=== PATIENT | female | born 1990 | race American Indian/Alaskan Native ===

== ENCOUNTER 2017-04-20 00:58 | Emergency (ER) | payer MEDICAID ==
[2017-04-20 01:15] VITALS: RESP 18; O2SAT 100
--- NOTE | 2017-04-20 01:32 | ED PDOC ---
HPI: CCC, URI, Sore Throat <Dona Mcfarlane - Last Filed: 04/20/17 01:30> <Tae Eaton - Last Filed: 04/20/17 02:31> Time Seen by Provider: 04/20/17 01:19 Chief Complaint (Nursing): Chest Pain Additional Complaint(s): 26yo , homeless F with no PMHx c/o cough. productive cough, yellow sputum, a/w postussive chest pain. Denies f/c, n/v, SOB, hemoptysis, abd pain, diarrhea. (Dona Mcfarlane) Supervising Attending Note - Attestation: I have personally seen and examined this patient.: Yes I have fully participated in the care of the patient.: Yes I have reviewed all pertinent clinical information, including history, physical exam and plan: Yes <Tae Eaton - Last Filed: 04/20/17 02:31> Past Medical History Reviewed: Historical Data, Nursing Documentation, Vital Signs - Medical History PMH: No Chronic Diseases - Surgical History Surgical History: No Surg Hx - Family History Family History: States: Unknown Family Hx - Social History Current smoker - smoking cessation education provided: No Alcohol: None Drugs: Denies <DenysDona - Last Filed: 04/20/17 01:30> <Tae Eaton - Last Filed: 04/20/17 02:31> Vital Signs: Last Vital Signs Temp 98.2 F 04/20/17 01:11 Pulse 86 04/20/17 01:11 Resp 18 04/20/17 01:11 BP 117/68 04/20/17 01:11 Pulse Ox 100 04/20/17 01:35 - Allergies Allergies/Adverse Reactions: Allergies Allergy/AdvReac Type Severity Reaction Status Date / Time No Known Allergies Allergy Verified 04/20/17 01:28 Review of Systems ROS Statement: Except As Marked, All Systems Reviewed And Found Negative Cardiovascular: Positive for: Chest Pain Respiratory: Positive for: Cough, Sputum <Dona Mcfarlane - Last Filed: 04/20/17 01:30> Physical Exam - Reviewed Nursing Documentation Reviewed: Yes Vital Signs Reviewed: Yes - Physical Exam Appears: Positive for: Well, Non-toxic Head Exam: Positive for: ATRAUMATIC, NORMAL INSPECTION Skin: Positive for: Warm, Dry Eye Exam: Positive for: Normal appearance ENT: Negative for: Pharyngeal Erythema, Tonsillar Exudate Neck: Positive for: Normal, Supple Cardiovascular/Chest: Positive for: Regular Rate, Rhythm. Negative for: Murmur Respiratory: Positive for: Normal Breath Sounds. Negative for: Crackles, Rales , Rhonchi, Wheezing Gastrointestinal/Abdominal: Positive for: Normal Exam, Soft Back: Positive for: Normal Inspection Lymphatic: Positive for: Deferred. Negative for: Adenopathy Neurologic/Psych: Positive for: Alert, Oriented <,Ting - Last Filed: 04/20/17 01:30> - ECG O2 Sat by Pulse Oximetry: 100 <Ting - Last Filed: 04/20/17 01:30> Medical Decision Making <Ting - Last Filed: 04/20/17 01:30> <Tae Eaton - Last Filed: 04/20/17 02:31> Medical Decision Makin DDx uri, post tussive chest pain, unlikely IN EKG no acute change, no ST elevation tylenol 650 mg PO x1 d/c, FU PMD, take PNV, tylenol for pain/fever (,Ting) Disposition - Disposition Disposition: Routine/Home Disposition Time: 01:35 <Ortizg - Last Filed: 04/20/17 01:30> <Tae Eaton - Last Filed: 04/20/17 02:31> - Clinical Impression Clinical Impression: Viral URI with cough - Disposition Condition: STABLE Forms: [facility] (Indonesian)
[2017-04-20] MEDS ORDERED: guaiFENesin 100 mg/5 ml Syrup UD PO STA (01:50)
[2017-04-20 02:46] VITALS: BP 115/79; PULSE 84; TEMP 97.6
== END 2017-04-20 02:50 | disposition home or self-care (01) ==
LOC: H.ER 00:58
DX: J06.9 Acute upper respiratory infection, unspecified (principal)

== ENCOUNTER 2017-04-20 16:18 | Emergency (ER) | payer MEDICAID ==
[2017-04-20 16:35] VITALS: BP 109/60; PULSE 75; RESP 16; TEMP 98.6; O2SAT 100
--- NOTE | 2017-04-20 18:06 | ED PDOC ---
HPI: Female Pain Time Seen by Provider: 04/20/17 16:38 Chief Complaint (Nursing): Female Genitourinary Chief Complaint (Provider): Watery eyes, nasal congestion History Per: Patient History/Exam Limitations: no limitations Onset/Duration Of Symptoms: Days Current Symptoms Are (Timing): Still Present Additional Complaint(s): Watery eyes and nasal congestion. PT denies any other complaints. When asked about vaginal bleeding pt states a little. No previous US. Past Medical History Reviewed: Historical Data, Nursing Documentation, Vital Signs Vital Signs: Last Vital Signs Temp 98.6 F 04/20/17 16:31 Pulse 75 04/20/17 16:31 Resp 16 04/20/17 16:31 BP 109/60 04/20/17 16:31 Pulse Ox 100 04/20/17 16:31 - Medical History PMH: No Chronic Diseases - Surgical History Surgical History: Appendectomy - Family History Family History: States: Unknown Family Hx - Living Arrangements Living Arrangements: With Family - Social History Current smoker - smoking cessation education provided: No Alcohol: None Drugs: Denies - Home Medications Home Medications: Ambulatory Orders Medication Instructions Recorded Acetaminophen [Pain Reliever] 500 mg PO Q4 #30 tablet 04/20/17 Cetirizine HCl [Zyrtec Allergy] 10 mg PO DAILY #30 sgl 04/20/17 Guaifenesin [Expectorant] 200 mg PO BID #20 tablet 04/20/17 Multivit/Folic Acid/I 1 tab PO DAILY #30 tab 04/20/17 [ Plus] - Allergies Allergies/Adverse Reactions: Allergies Allergy/AdvReac Type Severity Reaction Status Date / Time No Known Allergies Allergy Verified 04/20/17 01:28 Review of Systems ROS Statement: Except As Marked, All Systems Reviewed And Found Negative Eyes: Positive for: Other (Watery eyes ) ENT: Positive for: Nose Congestion Genitourinary Female: Positive for: Vaginal Bleeding. Negative for: Dysuria, Frequency Physical Exam - Reviewed Nursing Documentation Reviewed: Yes Vital Signs Reviewed: Yes - Physical Exam Appears: Positive for: Well, Non-toxic, No Acute Distress Head Exam: Positive for: ATRAUMATIC, NORMAL INSPECTION, NORMOCEPHALIC Skin: Positive for: Normal Color, Warm, DRY Eye Exam: Positive for: Normal appearance ENT: Positive for: Normal ENT Inspection Neck: Positive for: Normal, Painless ROM Cardiovascular/Chest: Positive for: Regular Rate, Rhythm Respiratory: Positive for: Normal Breath Sounds. Negative for: Accessory Muscle Use, Respiratory Distress Gastrointestinal/Abdominal: Positive for: Normal Exam, Bowel Sounds, Soft Pelvic Exam: Positive for: Other (Deferred ) Back: Positive for: Normal Inspection Extremity: Positive for: Normal ROM Neurologic/Psych: Positive for: Alert, Oriented - ECG O2 Sat by Pulse Oximetry: 100 Medical Decision Making Medical Decision Makin - PT states she does not want to wait in ER any longer. PT states "you guys haven't done anything for me". PT refused blood work stating the nruse wasn 't doing it right. Pt then refused US. Pt reports taking vitamins but has no care. Instructed patient to stay for labs and US however she states she is not bleeding. After discarhge Nurse finds blood in ER bathroom patient previously used. Disposition - Clinical Impression Clinical Impression: Allergic rhinitis, Vaginal bleeding in - Patient ED Disposition Is Patient to be Admitted: No Counseled Patient/Family Regarding: Diagnosis, Need For Followup, Rx Given - Disposition Disposition: Routine/Home Disposition Time: 18:04 Condition: GOOD Prescriptions: Cetirizine HCl [Zyrtec Allergy] 10 mg PO DAILY #30 sgl Instructions: Allergies (ED)
== END 2017-04-20 18:34 | disposition home or self-care (01) ==
LOC: H.ER 16:18
DX: J30.9 Allergic rhinitis, unspecified (principal); O46.90 Antepartum hemorrhage, unspecified, unspecified trimester

== ENCOUNTER 2017-04-25 20:49 | Emergency (ER) | payer MEDICAID ==
[2017-04-25 21:00] VITALS: BP 95/62; PULSE 78; RESP 17; TEMP 97.8; O2SAT 100
[2017-04-25] MEDS ORDERED: Sodium Chloride 0.9% 1,000 ML IV STA (21:34)
--- NOTE | 2017-04-25 21:34 | ED PDOC ---
HPI: Female Pain Time Seen by Provider: 04/25/17 21:10 Chief Complaint (Nursing): Abdominal Pain Chief Complaint (Provider): with abdominal pain History Per: Patient Additional Complaint(s): 26-year-old female , approximately 12 weeks presents to emergency department with abdominal pain and dizziness ongoing for several days. Patient is currently non-domiciled and states she has not had any care in this up to this point. Patient does state she is taking vitamins. She has had intermittent vaginal bleeding over the past few days but none at present. She denies fever or chills. Past Medical History Reviewed: Historical Data, Nursing Documentation, Vital Signs Vital Signs: Last Vital Signs Temp 97.8 F 04/25/17 20:57 Pulse 78 04/25/17 20:57 Resp 17 04/25/17 20:57 BP 95/62 L 04/25/17 20:57 Pulse Ox 100 04/25/17 20:57 - Medical History PMH: No Chronic Diseases - Surgical History Surgical History: Appendectomy, (x 2) - Family History Family History: States: No Known Family Hx - Living Arrangements Living Arrangements: Other (non-domiciled) - Social History Current smoker - smoking cessation education provided: No Alcohol: None Drugs: Denies - Home Medications Home Medications: Ambulatory Orders Medication Instructions Recorded Acetaminophen [Pain Reliever] 500 mg PO Q4 #30 tablet 04/20/17 Cetirizine HCl [Zyrtec Allergy] 10 mg PO DAILY #30 sgl 04/20/17 Guaifenesin [Expectorant] 200 mg PO BID #20 tablet 04/20/17 Multivit/Folic Acid/I 1 tab PO DAILY #30 tab 04/20/17 [ Plus] Nitrofurantoin Macrocrystals 100 mg PO BID #14 cap 04/26/17 [Macrobid] - Allergies Allergies/Adverse Reactions: Allergies Allergy/AdvReac Type Severity Reaction Status Date / Time No Known Allergies Allergy Verified 04/25/17 21:00 Review of Systems ROS Statement: Except As Marked, All Systems Reviewed And Found Negative Constitutional: Negative for: Fever Cardiovascular: Negative for: Chest Pain Respiratory: Negative for: Cough Gastrointestinal: Positive for: Nausea, Abdominal Pain. Negative for: Vomiting Genitourinary Female: Positive for: Vaginal Bleeding (intermittent for one week , none at present). Negative for: Dysuria Neurological: Positive for: Dizziness. Negative for: Headache Physical Exam - Reviewed Nursing Documentation Reviewed: Yes Vital Signs Reviewed: Yes - Physical Exam Appears: Positive for: Well, Non-toxic, No Acute Distress Skin: Negative for: Rash Eye Exam: Positive for: Normal appearance Cardiovascular/Chest: Positive for: Regular Rate, Rhythm Respiratory: Positive for: Normal Breath Sounds Gastrointestinal/Abdominal: Positive for: Other (gravid appearing, non-tender abdomen) Back: Negative for: L CVA Tenderness, R CVA Tenderness Extremity: Positive for: Normal ROM. Negative for: Pedal Edema Neurologic/Psych: Positive for: Alert, Oriented - Laboratory Results Result Diagrams: 04/25/17 22:45 04/25/17 22:45 Urine POC: Negative Urine dip results: Positive for: Leukocyte Esterase (small). Negative for: Blood, Nitrate, Ketones, Glucose, Bilirubin, Protein - ECG O2 Sat by Pulse Oximetry: 100 Pulse Ox Interpretation: Normal - Other Rad OB US X-Ray: Read By Radiologist X-Ray Interpretation: no IUP, normal ovaries bilaterally Medical Decision Making Medical Decision Makin26 year old female with abdominal pain and dizziness Plan: Urine test EKG OB US CBC CMP Trop UA Beta IVF IV zofran Patient was told that US shows no IUP and she states, "that'a a lie. I want to see another nurse." Case was d/w crisis who will see patient. As per crisis counselor and psychiatrist detention worker, Dr. Zuleta, patient does not meet criteria for admission and is stable for discharge. UTI noted, rx macrobid given. Patient was referred to clinic for follow up. Disposition - Clinical Impression Clinical Impression: Urinary tract infection, Mood disorder - Patient ED Disposition Is Patient to be Admitted: No Counseled Patient/Family Regarding: Studies Performed, Diagnosis, Need For Followup, Rx Given - Disposition Referrals: [facility] [Outside] Disposition: Routine/Home Disposition Time: 00:05 Condition: STABLE Additional Instructions: Take rx meds as directed. Drink plenty of water. Follow up in 2-3 days with clinic. Prescriptions: Nitrofurantoin Macrocrystals [Macrobid] 100 mg PO BID #14 cap Instructions: Urinary Tract Infection in Women (ED), Mood Disorders (ED) Forms: [facility] (Indonesian) Results - Lab Results Lab Results: 04/25/17 04/25/17 04/25/17 22:45 22:45 22:45 WBC 10.9 H RBC 4.06 Hgb 11.8 L Hct 35.9 MCV 88.4 MCH 29.0 MCHC 32.8 L RDW 13.7 Plt Count 271 MPV 8.8 Neut % (Auto) 48.7 L Lymph % (Auto) 42.1 H [place] % (Auto) 5.8 Eos % (Auto) 2.0 Baso % (Auto) 1.4 Neut # 5.3 Lymph # 4.6 H [place] # 0.6 Eos # 0.2 Baso # 0.2 Sodium 140 Potassium 3.5 L Chloride 103 Carbon Dioxide 28 Anion Gap 13 BUN 12 Creatinine 0.9 Est GFR ( Amer) > 60 Est GFR (Non-Af Amer) > 60 Random Glucose 112 H Calcium 9.3 Total Bilirubin 0.2 AST 20 ALT 49 Alkaline Phosphatase 85 Troponin I < 0.0120 Total Protein 6.9 Albumin 4.0 Globulin 2.9 Albumin/Globulin Ratio 1.4 Beta HCG, Quant < 2.39 Urine Color Straw Urine Clarity Clear Urine pH 7.0 Ur Specific [place] 1.005 Urine Protein Negative Urine Glucose (UA) Neg Urine Ketones Negative Urine Blood Negative Urine Nitrate Negative Urine Bilirubin Negative Urine Urobilinogen 0.2-1.0 Ur Leukocyte Esterase Small Urine RBC (Auto) 2 Urine Microscopic WBC 12 H Urine Bacteria Rare
--- NOTE | 2017-04-25 22:49 | US ---
EXAM: US Uterus, Limited CLINICAL HISTORY: 26 years old, female; Pain; Other: Abd pain; Gestational age or lmp: 02/07/17; Additional info: 12 weeks with abdominal pain TECHNIQUE: Real-time ultrasound of the maternal uterus (limited) with image documentation. COMPARISON: No relevant prior studies available. FINDINGS: The uterus is unremarkable in echogenicity and size measuring 12.2 x 4.8 x 5.8 cm. The endometrium measures 7 mm and is not thickened. The cervix measures 6.1 cm, and is closed. No intrauterine gestation is detected. The right ovary is unremarkable in echogenicity and size measuring 2.3 x 1.1 x 2.3 cm. Dopplerable flow is detected. The left ovary is unremarkable in echogenicity and size measuring 3.4 x 2.3 x 3.9 cm. Dopplerable flow is detected. No free fluid is noted IMPRESSION: No intrauterine or extrauterine is detected. Please correlate these findings with the serum beta hCG, pending at the time of this examination.
[2017-04-25 22:54] LABS: BASO # 0.2 K/uL (0.0-0.2); BASO % 1.4 % (0.0-2.0); EOS # 0.2 K/uL (0.0-0.7); HEMATOCRIT 35.9 % (34.0-47.0); LYMPH # 4.6 K/uL (1.0-4.3); LYMPH % 42.1 % (20.0-40.0); MEAN CELL VOLUME 88.4 fl (81.0-99.0); MEAN CORPUSCULAR HGB CONC 32.8 g/dL (33.0-37.0); MEAN PLATELET VOLUME 8.8 fl (7.2-11.7); MONO # 0.6 K/uL (0.0-0.8); MONO % 5.8 % (0.0-10.0); NEUT # 5.3 K/uL (1.8-7.0); NEUT % 48.7 % (50.0-75.0); NRBC % 0.1 % (0.0-0.0); RED CELL DISTRIBUTION WIDTH 13.7 % (11.5-14.5); WHITE BLOOD COUNT 10.9 K/uL (4.8-10.8)
[2017-04-25 23:01] LABS: ALB/GLOB RATIO 1.4 (1.0-2.1); ALKALINE PHOSPHATASE 85 U/L (38-126); ALT/SGPT 49 U/L (9-52); AST/SGOT 20 U/L (14-36); BILIRUBIN,TOTAL 0.2 mg/dl (0.2-1.3); BLOOD UREA NITROGEN 12 mg/dl (7-17); CALCIUM 9.3 mg/dL (8.4-10.2); CARBON DIOXIDE 28 mmol/L (22-30); CHLORIDE 103 mmol/L (98-107); GFR AFRICAN-AMERICAN > 60; GLUCOSE,RANDOM 112 mg/dL (65-105); SODIUM 140 mmol/l (132-148); TOTAL PROTEIN 6.9 G/DL (6.3-8.2)
[2017-04-25 23:05] LABS: RBC URINE 2 /hpf (0-3); URINE BACTERIA RARE (<OCC); URINE BILIRUBIN NEGATIVE (NEGATIVE); URINE BLOOD NEGATIVE (NEGATIVE); URINE COLOR STRAW (YELLOW); URINE GLUCOSE (UA) NEG (Normal); URINE KETONE NEGATIVE (NEGATIVE); URINE LEUKOCYTE ESTERASE SMALL Leu/uL (Negative); URINE PROTEIN NEGATIVE (NEGATIVE); URINE UROBILINOGEN 0.2-1.0 mg/dL (0.2-1.0)
[2017-04-25 23:06] LABS: WBC URINE 12 /hpf (0-5)
[2017-04-25 23:22] LABS: POTASSIUM 3.5 MMOL/L (3.6-5.0)
--- NOTE | 2017-04-28 11:11 | CARD ---
APPROVED REPORT EKG Measurement Heart [id number] <Conclusion> Normal sinus rhythm T wave abnormality, consider anterior ischemia Abnormal ECG
== END 2017-04-26 00:21 | disposition home or self-care (01) ==
LOC: H.ER 20:49
DX: O23.41 Unspecified infection of urinary tract in pregnancy, first trimester (principal); F39 Unspecified mood [affective] disorder; O99.341 Other mental disorders complicating pregnancy, first trimester; Z3A.12 12 weeks gestation of pregnancy
CPT/HCPCS: 76815; 80053; 80320; 80324; 80345; 80346; 80349; 80353; 80358; 80361; 81003; 81025; 83992; 84484; 84702; 85025; 87086; 93005; 99282; J2405; J7040

== ENCOUNTER 2017-07-31 03:55 | Emergency (ER) | payer MEDICAID ==
[2017-07-31 04:09] VITALS: RESP 16; O2SAT 100
--- NOTE | 2017-07-31 04:22 | ED PDOC ---
HPI: Female Pain Time Seen by Provider: 07/31/17 04:09 Chief Complaint (Nursing): Female Genitourinary Chief Complaint (Provider): Vaginal Bleeding and Headache History Per: Patient History/Exam Limitations: no limitations Onset/Duration Of Symptoms: Days (x3 weeks) Current Symptoms Are (Timing): Still Present Additional Complaint(s): Semaj Christine is a 27 year old [place] female with a past medical history of appendectomy and x2 who presents to the ED complaining of vaginal bleeding and headache x3 weeks. Patient reports shes had 3 weeks of vaginal bleeding although she completed her period 07/07. Denies any associated pelvic cramps, but confirms headache and nausea. PMD: Non-H Provider Past Medical History Reviewed: Historical Data, Nursing Documentation, Vital Signs Vital Signs: Last Vital Signs Temp 98.0 F 07/31/17 04:01 Pulse 70 07/31/17 04:01 Resp 16 07/31/17 04:01 BP 134/73 07/31/17 04:01 Pulse Ox 100 07/31/17 04:01 - Medical History PMH: Denies: Diabetes, Hepatitis, HIV, HTN, Seizures, Sexually Transmitted Disease - Surgical History Surgical History: Appendectomy, (x 2) - Family History Family History: States: Unknown Family Hx - Living Arrangements Living Arrangements: Other (Undomiciled) - Social History Current smoker - smoking cessation education provided: No Alcohol: None Drugs: Denies - Home Medications Home Medications: Ambulatory Orders Medication Instructions Recorded Acetaminophen [Pain Reliever] 500 mg PO Q4 #30 tablet 04/20/17 Cetirizine HCl [Zyrtec Allergy] 10 mg PO DAILY #30 sgl 04/20/17 Guaifenesin [Expectorant] 200 mg PO BID #20 tablet 04/20/17 Multivit/Folic Acid/I 1 tab PO DAILY #30 tab 04/20/17 [ Plus] Nitrofurantoin Macrocrystals 100 mg PO BID #14 cap 04/26/17 [Macrobid] - Allergies Allergies/Adverse Reactions: Allergies Allergy/AdvReac Type Severity Reaction Status Date / Time No Known Allergies Allergy Verified 04/25/17 21:00 Review of Systems ROS Statement: Except As Marked, All Systems Reviewed And Found Negative Gastrointestinal: Positive for: Nausea Genitourinary Female: Positive for: Vaginal Bleeding. Negative for: Pelvic Pain Neurological: Positive for: Headache Physical Exam - Reviewed Nursing Documentation Reviewed: Yes Vital Signs Reviewed: Yes - Physical Exam Appears: Positive for: Well, Non-toxic, No Acute Distress Head Exam: Positive for: ATRAUMATIC, NORMAL INSPECTION, NORMOCEPHALIC Skin: Positive for: Normal Color, Warm, Dry Eye Exam: Positive for: EOMI, Normal appearance, PERRL Neck: Positive for: Normal, Painless ROM, Supple Cardiovascular/Chest: Positive for: Regular Rate, Rhythm. Negative for: Murmur Respiratory: Positive for: Normal Breath Sounds. Negative for: Respiratory Distress Gastrointestinal/Abdominal: Positive for: Normal Exam, Bowel Sounds, Soft. Negative for: Tenderness Back: Positive for: Normal Inspection. Negative for: L CVA Tenderness, R CVA Tenderness, Vertebral Tenderness Extremity: Positive for: Normal ROM. Negative for: Pedal Edema, Deformity Neurologic/Psych: Positive for: Alert, Oriented. Negative for: Motor/Sensory Deficits - Laboratory Results Result Diagrams: 07/31/17 04:26 07/31/17 04:26 - ECG O2 Sat by Pulse Oximetry: 100 (RA) Pulse Ox Interpretation: Normal Medical Decision Making Medical Decision Making: Time: 04:09 Initial Impression: 27 year old female with vaginal bleeding Plan: --Beta-HCG, quantitative --CMP --Urine --ED Urine dipstick --CBC w/ differential --Reglan 10 mg IVPB --Tylenol 650 mg PO --Heplock insertion --Urinalysis Scribe Attestation: Documented by Brent Escobedo acting as a scribe for Yves Iyer MD. MD Starr Attestation: All medical record entries made by the Scribe were at my direction and personally dictated by me. I have reviewed the chart and agree that the record accurately reflects my personal performance of the history, physical exam, medical decision making, and the department course for this patient. I have also personally directed, reviewed, and agree with the discharge instructions and disposition. Disposition - Clinical Impression Clinical Impression: Vaginal bleeding - Disposition [facility] Disposition: Routine/Home Disposition Time: 06:30 Condition: STABLE Instructions: Menorrhagia (ED) Forms: [employer] (French)
[2017-07-31 04:33] LABS: BASO % 0.4 % (0.0-2.0); EOS # 0.1 K/uL (0.0-0.7); EOS % 1.3 % (0.0-4.0); HEMATOCRIT 39.5 % (34.0-47.0); LYMPH # 4.6 K/uL (1.0-4.3); LYMPH % 43.2 % (20.0-40.0); MEAN CORPUSCULAR HEMOGLOBIN 28.8 pg (27.0-31.0); MEAN CORPUSCULAR HGB CONC 33.4 g/dL (33.0-37.0); MEAN PLATELET VOLUME 8.7 fl (7.2-11.7); MONO # 0.9 K/uL (0.0-0.8); MONO % 8.1 % (0.0-10.0); NRBC % 0.2 % (0.0-0.0); RED CELL DISTRIBUTION WIDTH 13.3 % (11.5-14.5); WHITE BLOOD COUNT 10.6 K/uL (4.8-10.8)
[2017-07-31 05:06] LABS: RBC URINE 44482 /hpf (0-3); URINE BACTERIA RARE (<OCC); URINE BILIRUBIN NEGATIVE (NEGATIVE); URINE COLOR YELLOW (YELLOW); URINE GLUCOSE (UA) 50 mg/dL (Normal); URINE KETONE NEGATIVE (NEGATIVE); URINE LEUKOCYTE ESTERASE SMALL Leu/uL (Negative); URINE PROTEIN 100 mg/dL (NEGATIVE); URINE UROBILINOGEN 0.2-1.0 mg/dL (0.2-1.0); WBC URINE 16 /hpf (0-5)
[2017-07-31 05:07] LABS: URINE BLOOD LARGE (NEGATIVE)
[2017-07-31 05:33] LABS: ALB/GLOB RATIO 1.3 (1.0-2.1); ALKALINE PHOSPHATASE 82 U/L (38-126); ALT/SGPT 33 U/L (9-52); AST/SGOT 23 U/L (14-36); BILIRUBIN,TOTAL 0.1 mg/dl (0.2-1.3); CALCIUM 9.5 mg/dL (8.4-10.2); CARBON DIOXIDE 26 mmol/L (22-30); CHLORIDE 100 mmol/L (98-107); GFR AFRICAN-AMERICAN > 60; GLUCOSE,RANDOM 82 mg/dL (65-105); POTASSIUM 3.8 MMOL/L (3.6-5.0); SODIUM 137 mmol/l (132-148); TOTAL PROTEIN 7.6 G/DL (6.3-8.2)
[2017-07-31 06:11] LABS: BLOOD UREA NITROGEN 17 mg/dl (7-17)
[2017-07-31 06:36] VITALS: BP 124/73; PULSE 77; TEMP 98.1
== END 2017-07-31 06:25 | disposition home or self-care (01) ==
LOC: H.ER 03:55
DX: N93.9 Abnormal uterine and vaginal bleeding, unspecified (principal); R51 Headache; Z90.49 Acquired absence of other specified parts of digestive tract
CPT/HCPCS: 80053; 81003; 81025; 84702; 85025; 96374; 99284; J2765

== ENCOUNTER 2018-03-09 04:25 | Emergency (ER) | payer SELFPAY ==
[2018-03-09 05:08] VITALS: BP 92/56; PULSE 84; RESP 16; TEMP 98.2; O2SAT 98
--- NOTE | 2018-03-09 05:50 | ED PDOC ---
Lower Extremity Pain/Injury Time Seen by Provider: 03/09/18 04:31 Chief Complaint (Nursing): Lower Extremity Problem/Injury Chief Complaint (Provider): Lower Extremity Problem/Injury History Per: Patient History/Exam Limitations: no limitations Onset/Duration Of Symptoms: Days (7) Additional Complaint(s): 27 years old female presents to the ED for evaluation of atraumatic right foot pain onset one week. Patient was sleeping prior to the interview. She reports being diagnosed before in [place] with nerve problem. PMD: non provided Past Medical History Reviewed: Historical Data, Nursing Documentation, Vital Signs Vital Signs: Last Vital Signs Temp 98.2 F 03/09/18 05:05 Pulse 84 03/09/18 05:05 Resp 16 03/09/18 05:05 BP 92/56 L 03/09/18 05:05 Pulse Ox 98 03/09/18 05:05 - Medical History PMH: No Chronic Diseases Denies: Diabetes, Hepatitis, HIV, HTN, Seizures, Sexually Transmitted Disease - Surgical History Surgical History: Appendectomy, (x 2) - Family History Family History: States: Unknown Family Hx - Social History Current smoker - smoking cessation education provided: No Alcohol: None Drugs: Denies - Home Medications Home Medications: Ambulatory Orders Medication Instructions Recorded Acetaminophen [Pain Reliever] 500 mg PO Q4 #30 tablet 04/20/17 Cetirizine HCl [Zyrtec Allergy] 10 mg PO DAILY #30 sgl 04/20/17 Guaifenesin [Expectorant] 200 mg PO BID #20 tablet 04/20/17 Multivit/Folic Acid/I 1 tab PO DAILY #30 tab 04/20/17 [ Plus] Nitrofurantoin Macrocrystals 100 mg PO BID #14 cap 04/26/17 [Macrobid] Naproxen [Naprosyn] 500 mg PO Q12 PRN #20 tablet 03/10/18 - Allergies Allergies/Adverse Reactions: Allergies Allergy/AdvReac Type Severity Reaction Status Date / Time No Known Allergies Allergy Verified 04/25/17 21:00 Review of Systems ROS Statement: Except As Marked, All Systems Reviewed And Found Negative Musculoskeletal: Positive for: Foot Pain (Right) Physical Exam - Reviewed Nursing Documentation Reviewed: Yes Vital Signs Reviewed: Yes - Physical Exam Appears: Positive for: Well, Non-toxic, No Acute Distress Skin: Positive for: Normal Color, Warm, Dry Extremity: Positive for: Normal ROM (Upper and lower), Capillary Refill (less than 2 sec, neurovascular intact). Negative for: Tenderness (of right foot), Deformity, Swelling (of right foot) Neurologic/Psych: Positive for: Alert, Oriented - ECG O2 Sat by Pulse Oximetry: 98 (RA) Pulse Ox Interpretation: Normal Medical Decision Making Medical Decision Making: Time: 05 Initial Plan: --Right Foot 3 Views 0610 Foot x-ray - on my view shows no significant abnormality. Patient is stable for discharged, instructed to follow up with PMD within 1 - 2 days. Scribe Attestation: Documented by Cathy Metcalf, acting as a scribe for Hope Reid MD. Provider Scribe Attestation: All medical record entries made by the Scribe were at my direction and personally dictated by me. I have reviewed the chart and agree that the record accurately reflects my personal performance of the history, physical exam, medical decision making, and the department course for this patient. I have also personally directed, reviewed, and agree with the discharge instructions and disposition. Disposition - Clinical Impression Clinical Impression: Foot pain - Patient ED Disposition Is Patient to be Admitted: No Counseled Patient/Family Regarding: Studies Performed, Diagnosis, Need For Followup - Disposition Referrals: [facility] [Outside] [facility] [Outside] Disposition: Routine/Home Disposition Time: 06:00 Condition: IMPROVED Additional Instructions: follow up with your primary doctor in 1-2 days return to the ED wtih any worsening or concerning symptoms Instructions: Muscle and Bone Pain (DC) Forms: [id number] (Norwegian)
--- NOTE | 2018-03-09 09:49 | RAD ---
PROCEDURE: Right Foot Radiographs. HISTORY: r foot pain COMPARISON: None. FINDINGS: BONES: Normal. No fracture. JOINTS: Normal. SOFT TISSUES: Normal. OTHER FINDINGS: None. IMPRESSION: Normal right foot radiographs.
== END 2018-03-09 06:43 | disposition home or self-care (01) ==
LOC: H.ER 04:25
DX: M79.671 Pain in right foot (principal)

== ENCOUNTER 2018-03-10 01:38 | Emergency (ER) | payer SELFPAY ==
[2018-03-10 02:26] VITALS: RESP 16; TEMP 98.2
[2018-03-10] MEDS ORDERED: Naproxen 500 MG TAB PO ONE ×2 (03:39→03:44)
--- NOTE | 2018-03-10 03:44 | ED PDOC ---
Lower Extremity Pain/Injury Time Seen by Provider: 03/10/18 03:16 Chief Complaint (Nursing): Lower Extremity Problem/Injury Chief Complaint (Provider): right ankle pain History Per: Patient History/Exam Limitations: no limitations Onset/Duration Of Symptoms: Days (months), Waxing/Waning Current Symptoms Are (Timing): Still Present Additional Complaint(s): 27 y/o female ambulates to ED for evaluation of right ankle/foot pain on-and- off x 2 months. Patient states she does a lot of walking, otherwise denies trauma. Denies fever, calf pain/tenderness, numbness/weakness right lower extremity, limitation of movement. Patient seen in ED yesterday for same. Past Medical History Reviewed: Historical Data, Nursing Documentation, Vital Signs Vital Signs: Last Vital Signs Temp 98.2 F 03/10/18 02:00 Pulse 77 03/10/18 02:00 Resp 16 03/10/18 02:00 BP 107/61 03/10/18 02:00 Pulse Ox 99 03/10/18 02:00 - Medical History PMH: No Chronic Diseases Denies: Diabetes, Hepatitis, HIV, HTN, Seizures, Sexually Transmitted Disease - Surgical History Surgical History: Appendectomy, (x 2) - Family History Family History: States: Unknown Family Hx - Home Medications Home Medications: Ambulatory Orders Medication Instructions Recorded Acetaminophen [Pain Reliever] 500 mg PO Q4 #30 tablet 04/20/17 Cetirizine HCl [Zyrtec Allergy] 10 mg PO DAILY #30 sgl 04/20/17 Guaifenesin [Expectorant] 200 mg PO BID #20 tablet 04/20/17 Multivit/Folic Acid/I 1 tab PO DAILY #30 tab 04/20/17 [ Plus] Nitrofurantoin Macrocrystals 100 mg PO BID #14 cap 04/26/17 [Macrobid] Naproxen [Naprosyn] 500 mg PO Q12 PRN #20 tablet 03/10/18 - Allergies Allergies/Adverse Reactions: Allergies Allergy/AdvReac Type Severity Reaction Status Date / Time No Known Allergies Allergy Verified 04/25/17 21:00 Review of Systems ROS Statement: Except As Marked, All Systems Reviewed And Found Negative Musculoskeletal: Positive for: Foot Pain (right ankle, right foot) Physical Exam - Reviewed Nursing Documentation Reviewed: Yes Vital Signs Reviewed: Yes - Physical Exam Appears: Positive for: Well, Non-toxic, No Acute Distress (sleeping) Pulses-Dorsalis Pedis (L): 2+ Pulses-Dorsalis Pedis (R): 2+ Pulses-Post. Tibialis (L): 2+ Pulses-Post. Tibialis (R): 2+ Extremity: Positive for: Normal ROM, Tenderness (anterior right ankle with mild STS; FROM. Distal NV/motor intact), Capillary Refill (<2 sec b/l LE). Negative for: Calf Tenderness Neurologic/Psych: Positive for: Alert, Oriented. Negative for: Motor/Sensory Deficits - ECG O2 Sat by Pulse Oximetry: 99 - Progress ED Course And Treament: naproxen PO, ankle xray Patient educated on findings, right foot/ankle wrapped in CECILIA Advised RICE Rx Naproxen given Advised follow up podiatry Return precautions given Disposition - Clinical Impression Clinical Impression: Ankle pain, right, Foot pain - Patient ED Disposition Is Patient to be Admitted: No Counseled Patient/Family Regarding: Studies Performed, Diagnosis, Need For Followup, Rx Given - Disposition Referrals: Podiatry Clinic [Outside] Disposition: Routine/Home Disposition Time: 04:34 Condition: STABLE Prescriptions: Naproxen [Naprosyn] 500 mg PO Q12 PRN #20 tablet PRN Reason: Pain, Moderate (4-7) Instructions: Muscle and Bone Pain (DC) Forms: [employer] (Kinyarwanda)
[2018-03-10 05:53] VITALS: BP 109/67; PULSE 71; O2SAT 100
--- NOTE | 2018-03-10 09:23 | RAD ---
Date of service: 03/10/2018 PROCEDURE: Right Ankle Radiographs. HISTORY: pain COMPARISON: Correlation made with concurrent radiographs right foot FINDINGS: BONES: Normal. No fracture. JOINTS: Normal. No osteoarthritis. Ankle mortise maintained. Talar dome intact SOFT TISSUES: Normal. OTHER FINDINGS: None. IMPRESSION: No evidence acute displaced
== END 2018-03-10 05:58 | disposition home or self-care (01) ==
LOC: H.ER 01:38
DX: M25.571 Pain in right ankle and joints of right foot (principal); M79.671 Pain in right foot

== ENCOUNTER 2018-03-11 05:06 | Emergency (ER) | payer SELFPAY ==
[2018-03-11 05:21] VITALS: BP 110/51; PULSE 66; TEMP 97.5; O2SAT 100
[2018-03-11 05:22] VITALS: BMI 29.9
[2018-03-11 05:26] VITALS: RESP 17
[2018-03-11] MEDS ORDERED: Naproxen 500 MG TAB PO ONE (05:26)
--- NOTE | 2018-03-11 05:32 | ED PDOC ---
Lower Extremity Pain/Injury Time Seen by Provider: 03/11/18 05:26 Chief Complaint (Nursing): Lower Extremity Problem/Injury Chief Complaint (Provider): foot pain History Per: Patient History/Exam Limitations: no limitations Onset/Duration Of Symptoms: Hrs Additional Complaint(s): 27 y/o female ambulates to ED with complaints of right foot pain x 4 hours. States her bone is "sticking out" from top of foot. Denies fever, trauma, swelling, numbness/weakness right lower extremity, limitation of movement. Of note, this is patient's third visit in 3 days for same; suspicious for bed- seeking behavior Past Medical History Vital Signs: Last Vital Signs Temp 97.5 F L 03/11/18 05:23 Pulse 66 03/11/18 05:23 Resp 17 03/11/18 05:23 BP 110/51 L 03/11/18 05:23 Pulse Ox 100 03/11/18 05:23 - Medical History PMH: Denies: Diabetes, Hepatitis, HIV, HTN, Seizures, Sexually Transmitted Disease - Surgical History Surgical History: Appendectomy, (x 2) - Family History Family History: States: Unknown Family Hx - Home Medications Home Medications: Ambulatory Orders Medication Instructions Recorded Acetaminophen [Pain Reliever] 500 mg PO Q4 #30 tablet 04/20/17 Cetirizine HCl [Zyrtec Allergy] 10 mg PO DAILY #30 sgl 04/20/17 Guaifenesin [Expectorant] 200 mg PO BID #20 tablet 04/20/17 Multivit/Folic Acid/I 1 tab PO DAILY #30 tab 04/20/17 [ Plus] Nitrofurantoin Macrocrystals 100 mg PO BID #14 cap 04/26/17 [Macrobid] Naproxen [Naprosyn] 500 mg PO Q12 PRN #20 tablet 03/10/18 - Allergies Allergies/Adverse Reactions: Allergies Allergy/AdvReac Type Severity Reaction Status Date / Time No Known Allergies Allergy Verified 04/25/17 21:00 Review of Systems ROS Statement: Except As Marked, All Systems Reviewed And Found Negative Musculoskeletal: Positive for: Foot Pain (right) Physical Exam - Reviewed Nursing Documentation Reviewed: Yes Vital Signs Reviewed: Yes - Physical Exam Appears: Positive for: Well, Non-toxic, No Acute Distress (sleeping comfortably on stretcher) Pulses-Dorsalis Pedis (L): 2+ Pulses-Dorsalis Pedis (R): 2+ Pulses-Post. Tibialis (L): 2+ Pulses-Post. Tibialis (R): 2+ Extremity: Positive for: Normal ROM, Capillary Refill. Negative for: Pedal Edema, Calf Tenderness, Deformity, Swelling Neurologic/Psych: Positive for: Alert, Oriented. 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 Foot wrapped in CECILIA for comfort. Naproxen PO given. Information for podiatry clinic given. Advised RICE. Patient requires no further intervention in the ED and is stable for discharge Disposition - Clinical Impression Clinical Impression: Foot pain - Patient ED Disposition Is Patient to be Admitted: No Counseled Patient/Family Regarding: Diagnosis, Need For Followup - Disposition Referrals: Podiatry Clinic [Outside] Disposition: Routine/Home Disposition Time: 05:34 Condition: STABLE Instructions: Joint Pain
== END 2018-03-11 06:28 | disposition home or self-care (01) ==
LOC: H.ER 05:06
DX: M79.671 Pain in right foot (principal)

== ENCOUNTER 2018-03-13 00:23 | Emergency (ER) | payer SELFPAY ==
[2018-03-13 00:23] VITALS: BMI 29.9
[2018-03-13 00:44] VITALS: BP 118/74; PULSE 71; RESP 16; TEMP 97.5; O2SAT 100
--- NOTE | 2018-03-13 01:04 | ED PDOC ---
HPI: Abdomen Time Seen by Provider: 03/13/18 00:45 Chief Complaint (Nursing): GI Problem Chief Complaint (Provider): Vomiting History Per: Patient, Other ([facility]) History/Exam Limitations: no limitations Onset/Duration Of Symptoms: Hrs (x3) Current Symptoms Are (Timing): Still Present Additional Complaint(s): 27 y/o homeless female brought in by [facility] under arrest foe evaluation of vomiting and headache x3 hours prior to arrival. Patient states that she started having a headache when she was eating around 10. She states its non- thunderclap, and non-maximal at onset. She reports that shes been having some vomiting with last episode prior to arrival. [employer] reports that they did not see any vomiting. PMD: None Past Medical History Reviewed: Historical Data, Nursing Documentation, Vital Signs Vital Signs: Last Vital Signs Temp 97.5 F L 03/13/18 03:49 Pulse 71 03/13/18 03:49 Resp 16 03/13/18 03:49 BP 118/74 03/13/18 03:49 Pulse Ox 100 03/13/18 03:49 - Medical History PMH: No Chronic Diseases Denies: Diabetes, Hepatitis, HIV, HTN, Seizures, Sexually Transmitted Disease - Surgical History Surgical History: Appendectomy, (x 2) - Family History Family History: States: Unknown Family Hx - Home Medications Home Medications: Ambulatory Orders Medication Instructions Recorded Acetaminophen [Pain Reliever] 500 mg PO Q4 #30 tablet 04/20/17 Cetirizine HCl [Zyrtec Allergy] 10 mg PO DAILY #30 sgl 04/20/17 Guaifenesin [Expectorant] 200 mg PO BID #20 tablet 04/20/17 Multivit/Folic Acid/I 1 tab PO DAILY #30 tab 04/20/17 [ Plus] Nitrofurantoin Macrocrystals 100 mg PO BID #14 cap 04/26/17 [Macrobid] Naproxen [Naprosyn] 500 mg PO Q12 PRN #20 tablet 03/10/18 - Allergies Allergies/Adverse Reactions: Allergies Allergy/AdvReac Type Severity Reaction Status Date / Time No Known Allergies Allergy Verified 03/13/18 00:40 Review of Systems ROS Statement: Except As Marked, All Systems Reviewed And Found Negative Gastrointestinal: Positive for: Vomiting Neurological: Positive for: Headache Physical Exam - Reviewed Nursing Documentation Reviewed: Yes Vital Signs Reviewed: Yes - Physical Exam Appears: Positive for: Non-toxic, No Acute Distress Head Exam: Positive for: ATRAUMATIC, NORMAL INSPECTION, NORMOCEPHALIC Skin: Positive for: Normal Color, Warm, Dry. Negative for: Rash Eye Exam: Positive for: EOMI, Normal appearance, PERRL ENT: Positive for: Normal ENT Inspection Neck: Positive for: Normal, Painless ROM, Supple Cardiovascular/Chest: Positive for: Regular Rate, Rhythm. Negative for: Murmur Respiratory: Positive for: Normal Breath Sounds. Negative for: Respiratory Distress Gastrointestinal/Abdominal: Positive for: Normal Exam, Soft. Negative for: Tenderness Back: Positive for: Normal Inspection. Negative for: L CVA Tenderness, R CVA Tenderness, Vertebral Tenderness Extremity: Positive for: Normal ROM. Negative for: Pedal Edema, Deformity Neurologic/Psych: Positive for: Alert, head charrer II-XII (intact), Oriented, Cerebellar Tests (normal), Gait (steady). Negative for: Motor/Sensory Deficits , Aphasia, Facial Droop - ECG O2 Sat by Pulse Oximetry: 100 (RA) Pulse Ox Interpretation: Normal Medical Decision Making Medical Decision Makin27 y/o female with no significant PMHx presenting for evaluation of vomiting -Patient is resting comfortably in bed without any active vomiting -Not concerned for pathological headache -Will treat with Zofran ODT and PO challenge afterwards 02:53 Upon reevaluation, patient is tolerating PO and reports feeling better. Patient will be discharged into police custody. ----- Scribe Attestation: Documented by Brent Escobedo, acting as a scribe for Tae Eaton MD. Provider Scribe Attestation: All medical record entries made by the Scribe were at my direction and personally dictated by me. I have reviewed the chart and agree that the record accurately reflects my personal performance of the history, physical exam, medical decision making, and the department course for this patient. I have also personally directed, reviewed, and agree with the discharge instructions and disposition. Disposition - Clinical Impression Clinical Impression: Vomiting - Patient ED Disposition Is Patient to be Admitted: No - Disposition Disposition: Discharged/Transfer to Law Enforcement Disposition Time: 02:53 Condition: STABLE Additional Instructions: Patient is medically and psychiatrically cleared for incarceration. Instructions: Nausea and Vomiting, Adult (DC) Forms: [employer] (Belarusian)
== END 2018-03-13 03:00 ==
LOC: H.ER 00:23
DX: R11.10 Vomiting, unspecified (principal); Z65.3 Problems related to other legal circumstances

== ENCOUNTER 2018-05-18 23:23 | Emergency (ER) | payer MEDICAID ==
[2018-05-18 23:23] VITALS: BMI 29.9
[2018-05-18 23:33] VITALS: BP 106/72; PULSE 70; RESP 18; TEMP 98.5; O2SAT 99
[2018-05-19] MEDS ORDERED: Naproxen 500 MG TAB PO ONE ×2 (00:13→01:27)
--- NOTE | 2018-05-19 00:16 | ED PDOC ---
Lower Extremity Pain/Injury Time Seen by Provider: 05/19/18 00:01 Chief Complaint (Nursing): Lower Extremity Problem/Injury Chief Complaint (Provider): knee pain History Per: Patient History/Exam Limitations: no limitations Onset/Duration Of Symptoms: Days (2 months), Waxing/Waning Current Symptoms Are (Timing): Still Present Additional Complaint(s): 27 y/o female presents for evaluation of bilateral knee pain x 2 months. Patient states pain worsened by weight-bearing and movement; states she was being medicated with naprosyn and tylenol in [facility] and was supposed to have xray' s but was released today. Denies knee trauma, numbness/weakness lower extremities, limitation of movement. Past Medical History Reviewed: Historical Data, Nursing Documentation, Vital Signs Vital Signs: Last Vital Signs Temp 98.5 F 05/18/18 23:31 Pulse 70 05/18/18 23:31 Resp 18 05/18/18 23:31 BP 106/72 05/18/18 23:31 Pulse Ox 99 05/18/18 23:31 - Medical History PMH: No Chronic Diseases Denies: Diabetes, Hepatitis, HIV, HTN, Seizures, Sexually Transmitted Disease - Surgical History Surgical History: Appendectomy, (x 2) - Family History Family History: States: Unknown Family Hx - Home Medications Home Medications: Ambulatory Orders Medication Instructions Recorded Acetaminophen [Pain Reliever] 500 mg PO Q4 #30 tablet 04/20/17 Cetirizine HCl [Zyrtec Allergy] 10 mg PO DAILY #30 sgl 04/20/17 Guaifenesin [Expectorant] 200 mg PO BID #20 tablet 04/20/17 Multivit/Folic Acid/I 1 tab PO DAILY #30 tab 04/20/17 [ Plus] Nitrofurantoin Macrocrystals 100 mg PO BID #14 cap 04/26/17 [Macrobid] Naproxen [Naprosyn] 500 mg PO Q12 PRN #20 tablet 03/10/18 Ibuprofen [Motrin] 600 mg PO Q8 PRN #21 tab 05/19/18 Naproxen [Naprosyn] 500 mg PO Q12 PRN #20 tablet 05/19/18 - Allergies Allergies/Adverse Reactions: Allergies Allergy/AdvReac Type Severity Reaction Status Date / Time No Known Allergies Allergy Verified 09/18/18 23:01 Review of Systems ROS Statement: Except As Marked, All Systems Reviewed And Found Negative Musculoskeletal: Positive for: Leg Pain (knee pain) Physical Exam - Reviewed Nursing Documentation Reviewed: Yes Vital Signs Reviewed: Yes - Physical Exam Appears: Positive for: Well, Non-toxic, No Acute Distress Head Exam: Positive for: ATRAUMATIC, NORMAL INSPECTION, NORMOCEPHALIC Pulses-Dorsalis Pedis (L): 2+ Pulses-Dorsalis Pedis (R): 2+ Pulses-Post. Tibialis (L): 2+ Pulses-Post. Tibialis (R): 2+ Extremity: Positive for: Normal ROM, Swelling (mild swelling medial aspect b/l knees; FROM. Distal NV/motor intact). Negative for: Capillary Refill, Deformity Neurologic/Psych: Positive for: Alert, Oriented (x3) - ECG O2 Sat by Pulse Oximetry: 99 - Other Rad b/l knee xray X-Ray: Viewed By Me X-Ray Interpretation: no acute findings - Progress ED Course And Treament: naproxen, maalox, knee xray Patient educated on findings, CECILIA wrap applied to knees Advised RICE Rx Naproxen provided Return precautions given Patient asking to be admitted because she is homeless Patient educated on normal xray findings and need to f/up outpatient. List of local shelters given to patient Patient requires no further intervention in the ED and is stable for discharge at this time Disposition - Clinical Impression Clinical Impression: Knee pain, bilateral - Patient ED Disposition Is Patient to be Admitted: No Counseled Patient/Family Regarding: Studies Performed, Diagnosis, Need For Followup, Rx Given - Disposition Referrals: [facility] [Outside] Disposition: Routine/Home Disposition Time: 01:16 Condition: IMPROVED Prescriptions: Naproxen [Naprosyn] 500 mg PO Q12 PRN #20 tablet PRN Reason: Pain, Moderate (4-7) Instructions: Knee Pain Forms: [employer] (Ecuadorean)
[2018-05-19] MEDS ORDERED: Alum-Mag Hydrox-Simethicone Susp (30 mL) PO ONE (01:29)
[2018-05-19] MEDS ORDERED: Alum-Mag Hydrox-Simethicone Susp (30 mL) ONE (01:32)
--- NOTE | 2018-05-19 14:46 | RAD ---
Date of service: 05/19/2018 PROCEDURE: Bilateral Knee Radiographs. HISTORY: atraumatic pain COMPARISON: None. FINDINGS: BONES: Right Knee: Normal. No fracture. Left Knee: Normal. No fracture. JOINTS: Right Knee: Normal. No osteoarthritis. Left knee: Normal. No osteoarthritis. SOFT TISSUES: Right Knee: Normal. Left Knee: Normal. JOINT EFFUSION: Right Knee: None. Left Knee: None. OTHER FINDINGS: None. IMPRESSION: Normal radiographs of the knees.
== END 2018-05-19 03:00 | disposition home or self-care (01) ==
LOC: H.ER 23:23
DX: M25.562 Pain in left knee (principal); M25.561 Pain in right knee

== ENCOUNTER 2018-05-19 22:40 | Emergency (ER) | payer MEDICAID ==
[2018-05-19 22:40] VITALS: BMI 29.9
[2018-05-19 23:03] VITALS: BP 114/76; PULSE 76; RESP 16; TEMP 98.2; O2SAT 100
--- NOTE | 2018-05-19 23:20 | ED PDOC ---
Lower Extremity Pain/Injury Time Seen by Provider: 05/19/18 23:08 Chief Complaint (Nursing): Lower Extremity Problem/Injury History Per: Patient (27 Y/O FEMALE HERE WITH RIGHT LEG/KNEE PAIN ONGOING. WAS SEEN YESTERDAY AND HAD XRY WNL. DENIES ANY FALLS. ) Past Medical History Reviewed: Historical Data, Nursing Documentation, Vital Signs Vital Signs: Last Vital Signs Temp 98.2 F 05/19/18 23:02 Pulse 76 05/19/18 23:02 Resp 16 05/19/18 23:02 BP 114/76 05/19/18 23:02 Pulse Ox 100 05/19/18 23:02 - Medical History PMH: Denies: Diabetes, Hepatitis, HIV, HTN, Seizures, Sexually Transmitted Disease - Surgical History Surgical History: Appendectomy, (x 2) - Family History Family History: States: Unknown Family Hx - Home Medications Home Medications: Ambulatory Orders Medication Instructions Recorded Acetaminophen [Pain Reliever] 500 mg PO Q4 #30 tablet 04/20/17 Cetirizine HCl [Zyrtec Allergy] 10 mg PO DAILY #30 sgl 04/20/17 Guaifenesin [Expectorant] 200 mg PO BID #20 tablet 04/20/17 Multivit/Folic Acid/I 1 tab PO DAILY #30 tab 04/20/17 [ Plus] Nitrofurantoin Macrocrystals 100 mg PO BID #14 cap 04/26/17 [Macrobid] Naproxen [Naprosyn] 500 mg PO Q12 PRN #20 tablet 03/10/18 Ibuprofen [Motrin] 600 mg PO Q8 PRN #21 tab 05/19/18 Naproxen [Naprosyn] 500 mg PO Q12 PRN #20 tablet 05/19/18 - Allergies Allergies/Adverse Reactions: Allergies Allergy/AdvReac Type Severity Reaction Status Date / Time No Known Allergies Allergy Verified 05/19/18 23:01 Review of Systems ROS Statement: Except As Marked, All Systems Reviewed And Found Negative Physical Exam - Reviewed Nursing Documentation Reviewed: Yes Vital Signs Reviewed: Yes - Physical Exam Appears: Positive for: Well, Non-toxic, No Acute Distress Head Exam: Positive for: ATRAUMATIC, NORMAL INSPECTION, NORMOCEPHALIC Skin: Positive for: Normal Color, Warm, DRY Eye Exam: Positive for: EOMI, Normal appearance, PERRL ENT: Positive for: Normal ENT Inspection Neck: Positive for: Normal, Painless ROM Cardiovascular/Chest: Positive for: Regular Rate, Rhythm Respiratory: Positive for: CNT, Normal Breath Sounds Gastrointestinal/Abdominal: Positive for: Normal Exam, Soft Back: Positive for: Normal Inspection Extremity: Positive for: Normal ROM, Tenderness (RIGHT ANTERIOR LEG), Other (NONTENDER RIGHT FOOT. ) Neurologic/Psych: Positive for: Alert, Oriented - ECG O2 Sat by Pulse Oximetry: 100 Disposition - Clinical Impression Clinical Impression: Perkins splint - Patient ED Disposition Is Patient to be Admitted: No - Disposition Referrals: [facility] [Outside] Disposition: Routine/Home Disposition Time: 23:20 Condition: FAIR Prescriptions: Ibuprofen [Motrin] 600 mg PO Q8 PRN #21 tab PRN Reason: Pain, Moderate (4-7) Instructions: Perkins Splints
== END 2018-05-19 23:39 | disposition home or self-care (01) ==
LOC: H.ER 22:40
DX: M76.811 Anterior tibial syndrome, right leg (principal)